=== PATIENT | female | born 1950 | race Caucasian/White ===

== ENCOUNTER 2016-11-24 08:52 | Outpatient (CLI) | payer BC ==
[2016-11-24 12:26] LABS: #Basophils 0.1 thou/uL (0.0-0.2); #Eosinphils 0.2 thou/uL (0.0-0.7); #Lymphocytes 1.9 thou/uL (1.20-3.40); #Monocytes 0.3 thou/uL (0.11-0.59); #Neutrophils 2.7 thou/uL (1.40-6.50); %Basophils 1.1 % (0.0-1.0); %Lymphocytes 37.4 % (21.0-51.0); %Neutrophils 52.5 % (42.0-75.0); Hemoglobin 13.9 g/dL (12.0-16.0); Mean Corpuscular HGB CONC 33.2 g/dL (32.0-36.0); Mean Corpuscular Hemoglobin 29.9 pg (27.0-31.0); Mean Corpuscular Volume 90.1 fl (81.0-99.0); Mean Platelet Volume 8.4 fL (7.4-10.4); Platelet Count 211 thou/uL (130-400); RBC Distribution Width 12.4 % (11.5-14.5); Red Blood Cell (RBC) Count 4.64 mill/uL (4.20-5.40); White Blood Cell (WBC) Count 5.1 thou/uL (4.8-10.8)
[2016-11-24 12:39] LABS: Anion Gap 17 mmol/L (10-20); BUN (Urea Nitrogen) 27 mg/dL (9.8-20.1); Calc. Creatinine Clearance 0 mL/min (70-130); Calcium 9.5 mg/dL (7.8-10.44); Carbon Dioxide 23 mmol/L (23-31); Cardiac Risk 3.4 (Less than 4.5); Chloride 106 mmol/L (98-107); Cholesterol 166 mg/dL (< 200 Desired); Estimated GFR-MDRD 51; Glucose 111 mg/dL (80-115); HDL Cholesterol 49 mg/dL (>60 Neg Risk); LDL Cholesterol, Calculated 77 mg/dL; Potassium 4.2 mmol/L (3.5-5.1); Sodium 142 mmol/L (136-145); Triglycerides 198 mg/dL (Less than 150)
[2016-11-24 12:54] LABS: Hemoglobin A1c 6.1 % (4.0-6.0)
[2016-11-24 14:14] LABS: ALT (SGPT) 31 U/L (0-55); AST (SGOT) 27 U/L (5-34); Albumin 4.7 g/dL (3.4-4.8); Alkaline Phosphatase 46 U/L (40-150); Bilirubin, Total 0.3 mg/dL (0.2-1.2); Globulin 2.8 g/dL (2.4-3.5); Protein, Total 7.5 g/dL (5.8-8.1)
[2016-11-24 14:36] LABS: Follow-up Chemistry Comp? YES; Follow-up Result - Chemistry REPORT FAXED
== END 2016-11-24 08:53 | disposition home or self-care (01) ==
LOC: NAVSJIPCSP 08:52
PROVIDERS: ATTEND Internal Medicine
DX: C50.111 Malignant neoplasm of central portion of right female breast (principal); E78.5 Hyperlipidemia, unspecified; I10 Essential (primary) hypertension; E11.9 Type 2 diabetes mellitus without complications; Z79.899 Other long term (current) drug therapy
CPT/HCPCS: 36415; 80053; 80061; 82306; 83036; 85025

== ENCOUNTER 2017-12-29 16:51 | Outpatient (CLI) | payer BC ==
--- NOTE | 2017-12-29 18:17 | RAD ---
TWO VIEWS OF THE CHEST: 12/29/17 COMPARISON: None. HISTORY: Hemoptysis. FINDINGS: Two views of the chest show normal sized cardiomediastinal silhouette. There is no evidence of consol idation, mass, or pleural effusion. The bones are unremarkable. IMPRESSION: No evidence of acute cardiopulmonary disease. POS: [facility]
== END 2017-12-29 16:52 | disposition home or self-care (01) ==
LOC: NAV RAD 16:51
PROVIDERS: ATTEND Otolaryngology
DX: R04.2 Hemoptysis (principal)
CPT/HCPCS: 71046

== ENCOUNTER 2019-05-30 16:46 | Outpatient (CLI) | payer BC ==
--- NOTE | 2019-05-30 17:25 | RAD ---
Left knee 4 views HISTORY: Left knee pain. Findings: Joint spaces are preserved. No acute fracture, dislocation, or aggressive osseous erosions. Small amount of fluid distends the suprapatellar bursa on the lateral view. A larger oval soft tissue density posterior to the joint space on the lateral view most likely represents fluid distenti on of a Hood cyst. 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 IMPRESSION: Fluid distention of the joint capsule and Hood cyst Cause is not evident. Possibly relat ed to otherwise mild degenerative changes. No acute osseous abnormalities are demonstrated. Clinical correlation regarding other signs and symptoms of internal derangement and need for MRI is r equired.
== END 2019-05-30 16:47 | disposition home or self-care (01) ==
LOC: NAV RAD 16:46
PROVIDERS: ATTEND Internal Medicine
DX: M25.562 Pain in left knee (principal); M71.22 Synovial cyst of popliteal space [Baker], left knee; M25.862 Other specified joint disorders, left knee

== ENCOUNTER → 2019-11-03 | Emergency (ER) | payer OTHER ==
[~2019-11-03] MED LIST: Lidocaine 1% (PF) 30 ML VIAL ONE; Lidocaine 1% w/Epinephrine 1:100K 30 ML VIAL ONE; Naproxen 500 MG TAB ONE; Ondansetron PF 4 MG/2 ML Vial ONE
--- NOTE | 2019-11-03 20:53 | RAD ---
Radiograph left wrist 3 views: DATE: 11/03/2019 Time: 8:41 PM HISTORY: 68-year-old female with acute traumatic left wrist pain due to fall. FINDINGS: There is a transverse-oblique fracture of the distal radial metaphysis, with approximately three four ths bone width anterior displacement of distal fragment, and at least one quarter bone width radial displacement of distal fragment, with overlap of fracture fragments causing foreshortening. No ulnar fracture is identified. No radiocarpal dislocation. IMPRESSION: Acute, traumatic, displaced distal radial fracture
== END ==
LOC: NAV ERS 19:43
DX: S59.202A Unspecified physeal fracture of lower end of radius, left arm, initial encounter for closed fracture (principal); E11.9 Type 2 diabetes mellitus without complications; I10 Essential (primary) hypertension; K21.9 Gastro-esophageal reflux disease without esophagitis; E78.5 Hyperlipidemia, unspecified; E78.00 Pure hypercholesterolemia, unspecified; F32.9 Major depressive disorder, single episode, unspecified; Z87.891 Personal history of nicotine dependence; Z79.82 Long term (current) use of aspirin; Z79.899 Other long term (current) drug therapy; W18.30XA Fall on same level, unspecified, initial encounter; Y92.096 Garden or yard of other non-institutional residence as the place of occurrence of the external cause
CPT/HCPCS: 25605; J2001; J2405

== ENCOUNTER 2024-03-26 14:25 | Inpatient (IN) | payer OTHER, MEDICARE ==
[2024-03-26] MEDS ORDERED: Senokot S 8.6-50 MG TAB PO PRN (15:26)
[2024-03-26] MEDS ORDERED: HYDROcodone/Acetaminophen 5/325 mg Tablet PO PRN (15:26)
[2024-03-26] MEDS ORDERED: Calcium Carbonate 500 MG ChewTAB PO PRN (15:26)
[2024-03-26] MEDS ORDERED: Acetaminophen 325 MG TAB PO PRN (15:26)
[2024-03-26 16:04] VITALS: BMI 25.0
[2024-03-26] MEDS: Ferrous Sulfate 325 MG TAB PO SCH (17:04)
[2024-03-26] MEDS: Fenofibrate Nanocrystallized 145 MG TAB PO SCH (21:19)
[2024-03-26] MEDS: Calcium Carbonate 500 MG TAB PO SCH (21:19)
[2024-03-26] MEDS: Aspirin 81 mg Enteric Coated Tablet PO SCH (21:19)
[2024-03-26] MEDS: Melatonin 3 MG TAB PO SCH (21:20)
[2024-03-26] MEDS ORDERED: Ondansetron ODT 4 MG TAB PO SCH (22:00)
[2024-03-27] MEDS: traZODone HCl 50 MG TAB PO PRN (00:21)
[2024-03-27 05:16] LABS: #Basophils 0.1 thou/uL (0.0-0.2); #Eosinphils 0.1 thou/uL (0.0-0.7); #Lymphocytes 1.1 thou/uL (1.20-3.40); #Monocytes 0.4 thou/uL (0.11-0.59); #Neutrophils 3.1 thou/uL (1.40-6.50); %Basophils 1.5 % (0.0-1.0); %Eosinophils 1.6 % (0.0-10.0); %Lymphocytes 23.2 % (21.0-51.0); %Monocytes 7.6 % (0.0-10.0); %Neutrophils 66.1 % (42.0-75.0); Hematocrit 21.2 % (36.0-47.0); Hemoglobin 6.8 g/dL (12.0-16.0); Mean Corpuscular HGB CONC 32.1 g/dL (32.0-36.0); Mean Corpuscular Volume 80.8 fl (78.0-98.0); Mean Platelet Volume 7.6 fL (7.4-10.4); Platelet Count 268 10x3/uL (130-400); RBC Distribution Width 15.9 % (11.5-14.5); Red Blood Cell (RBC) Count 2.62 mill/uL (4.20-5.40); White Blood Cell (WBC) Count 4.7 10x3/uL (4.8-10.8)
[2024-03-27 05:34] LABS: ALT (SGPT) 11 U/L (8-55); AST (SGOT) 20 U/L (5-34); Albumin 2.4 g/dL (3.4-4.8); Alkaline Phosphatase 94 U/L (40-110); Anion Gap 18 mmol/L (10-20); BUN (Urea Nitrogen) 20 mg/dL (9.8-20.1); Bilirubin, Total 0.3 mg/dL (0.2-1.2); Calc. Creatinine Clearance 44 mL/min (70-130); Carbon Dioxide 22 mmol/L (23-31); Chloride 101 mmol/L (98-107); Estimated GFR 49; Globulin 3.6 g/dL (2.4-3.5); Glucose 104 mg/dL (83-110); Potassium 2.9 mmol/L (3.5-5.1); Sodium 138 mmol/L (136-145)
[2024-03-27 05:46] LABS: Calcium 6.4 mg/dL (7.8-10.44); Critical Call Chemistry NUR.NB3@0545
[2024-03-27] MEDS: Multivitamin W/ Minerals 1 TAB PO SCH (07:55)
[2024-03-27] MEDS: Cyanocobalamin (Vitamin B-12) 1,000 MCG TAB PO SCH (07:55)
[2024-03-27] MEDS: Fish Oil 1,000 MG CAP PO SCH (07:56)
[2024-03-27] MEDS: Venlafaxine XR 37.5 MG CAP PO SCH ×2 (07:57→10:15)
[2024-03-27] MEDS: dilTIAZem CD 180 MG CAP PO SCH (07:57)
[2024-03-27] MEDS ORDERED: Clopidogrel Bisulfate 75 MG TAB PO SCH (09:00)
[2024-03-27] MEDS: Pantoprazole DR 40 MG TAB PO SCH (10:15)
[2024-03-27] MEDS: Potassium Chloride 20 MEQ TAB PO SCH ×2 (10:18→16:47)
[2024-03-27] MEDS: Sodium Chloride 0.9% 250 ML 250 ML IVPB SCH (13:45)
[2024-03-27] MEDS: Calcium Carbonate 500 MG TAB PO SCH (14:49)
[2024-03-27 17:19] LABS: #Eosinphils 0.1 thou/uL (0.0-0.7); #Lymphocytes 1.2 thou/uL (1.20-3.40); #Monocytes 0.2 thou/uL (0.11-0.59); #Neutrophils 3.6 thou/uL (1.40-6.50); %Basophils 0.9 % (0.0-1.0); %Eosinophils 1.6 % (0.0-10.0); %Lymphocytes 22.6 % (21.0-51.0); %Monocytes 4.6 % (0.0-10.0); %Neutrophils 70.2 % (42.0-75.0); Hematocrit 28.6 % (36.0-47.0); Hemoglobin 8.9 g/dL (12.0-16.0); Mean Corpuscular Hemoglobin 25.7 pg (27.0-31.0); Mean Corpuscular Volume 82.9 fl (78.0-98.0); Mean Platelet Volume 7.5 fL (7.4-10.4); Platelet Count 313 10x3/uL (130-400); RBC Distribution Width 15.1 % (11.5-14.5); Red Blood Cell (RBC) Count 3.45 mill/uL (4.20-5.40); White Blood Cell (WBC) Count 5.2 10x3/uL (4.8-10.8)
[2024-03-27 17:32] LABS: Anion Gap 19 mmol/L (10-20); BUN (Urea Nitrogen) 16 mg/dL (9.8-20.1); Calc. Creatinine Clearance 47 mL/min (70-130); Carbon Dioxide 21 mmol/L (23-31); Chloride 100 mmol/L (98-107); Estimated GFR 53; Glucose 106 mg/dL (83-110); Potassium 3.3 mmol/L (3.5-5.1); Sodium 137 mmol/L (136-145)
[2024-03-27 17:40] LABS: Calcium 6.8 mg/dL (7.8-10.44)
[2024-03-27] MEDS: Docusate 100 MG CAP PO SCH (20:59)
[2024-03-27] MEDS: traZODone HCl 50 MG TAB PO SCH (20:59)
[2024-03-28 06:13] LABS: #Eosinphils 0.1 thou/uL (0.0-0.7); #Lymphocytes 1.2 thou/uL (1.20-3.40); #Monocytes 0.5 thou/uL (0.11-0.59); #Neutrophils 3.9 thou/uL (1.40-6.50); %Basophils 0.8 % (0.0-1.0); %Lymphocytes 21.7 % (21.0-51.0); %Monocytes 5.9 % (0.0-10.0); %Neutrophils 69.7 % (42.0-75.0); Hematocrit 28.2 % (36.0-47.0); Hemoglobin 8.7 g/dL (12.0-16.0); Mean Corpuscular HGB CONC 30.7 g/dL (32.0-36.0); Mean Corpuscular Hemoglobin 25.7 pg (27.0-31.0); Mean Corpuscular Volume 83.8 fl (78.0-98.0); Mean Platelet Volume 7.9 fL (7.4-10.4); Platelet Count 308 10x3/uL (130-400); RBC Distribution Width 15.4 % (11.5-14.5); Red Blood Cell (RBC) Count 3.37 mill/uL (4.20-5.40); White Blood Cell (WBC) Count 5.5 10x3/uL (4.8-10.8)
[2024-03-28 06:17] LABS: Anion Gap 18 mmol/L (10-20); BUN (Urea Nitrogen) 14 mg/dL (9.8-20.1); Calc. Creatinine Clearance 54 mL/min (70-130); Calcium 7.1 mg/dL (7.8-10.44); Carbon Dioxide 20 mmol/L (23-31); Chloride 106 mmol/L (98-107); Estimated GFR 63; Glucose 104 mg/dL (83-110); Potassium 4.1 mmol/L (3.5-5.1); Sodium 140 mmol/L (136-145)
[2024-03-28 06:28] LABS: Magnesium 0.8 mg/dL (1.6-2.6)
[2024-03-28 06:45] VITALS: BMI 24.8
[2024-03-28] MEDS: Venlafaxine HCl XR 75 MG CAP PO SCH (08:47)
[2024-03-28] MEDS: Pantoprazole DR 40 MG TAB PO SCH (08:47)
[2024-03-28] MEDS: hydrOXYzine 25 MG TAB PO PRN (08:48)
[2024-03-28] MEDS: Magnesium Oxide 400 MG TAB PO SCH (09:03)
[2024-03-28] MEDS: Magnesium 2 GM/50 ML(in water) 2 GM in Premix 1 BAG IVPB SCH (09:03)
[2024-03-28 12:17] LABS: Hemoglobin A1c 5.5 % (4.0-6.0)
[2024-03-28] MEDS: Ferrous Sulfate 325 MG TAB PO SCH (17:06)
[2024-03-29 05:52] LABS: #Eosinphils 0.1 thou/uL (0.0-0.7); #Lymphocytes 1.1 thou/uL (1.20-3.40); #Monocytes 0.3 thou/uL (0.11-0.59); #Neutrophils 2.8 thou/uL (1.40-6.50); %Basophils 0.9 % (0.0-1.0); %Lymphocytes 25.3 % (21.0-51.0); %Monocytes 5.8 % (0.0-10.0); Hemoglobin 7.9 g/dL (12.0-16.0); Mean Corpuscular HGB CONC 31.7 g/dL (32.0-36.0); Mean Corpuscular Hemoglobin 26.2 pg (27.0-31.0); Mean Corpuscular Volume 82.7 fl (78.0-98.0); Mean Platelet Volume 7.7 fL (7.4-10.4); Platelet Count 275 10x3/uL (130-400); Red Blood Cell (RBC) Count 3.03 mill/uL (4.20-5.40); White Blood Cell (WBC) Count 4.3 10x3/uL (4.8-10.8)
[2024-03-29 05:54] LABS: Anion Gap 16 mmol/L (10-20); BUN (Urea Nitrogen) 12 mg/dL (9.8-20.1); Calc. Creatinine Clearance 55 mL/min (70-130); Calcium 7.4 mg/dL (7.8-10.44); Carbon Dioxide 22 mmol/L (23-31); Chloride 106 mmol/L (98-107); Estimated GFR 64; Glucose 86 mg/dL (83-110); Magnesium 2.8 mg/dL (1.6-2.6); Potassium 4.8 mmol/L (3.5-5.1); Sodium 139 mmol/L (136-145)
[2024-03-30 06:15] LABS: Anion Gap 15 mmol/L (10-20); BUN (Urea Nitrogen) 12 mg/dL (9.8-20.1); Calc. Creatinine Clearance 53 mL/min (70-130); Calcium 8.1 mg/dL (7.8-10.44); Carbon Dioxide 23 mmol/L (23-31); Chloride 107 mmol/L (98-107); Estimated GFR 62; Glucose 87 mg/dL (83-110); Magnesium 1.3 mg/dL (1.6-2.6); Potassium 4.5 mmol/L (3.5-5.1); Sodium 140 mmol/L (136-145)
[2024-03-30 06:23] LABS: #Eosinphils 0.1 thou/uL (0.0-0.7); #Lymphocytes 1.1 thou/uL (1.20-3.40); #Monocytes 0.2 thou/uL (0.11-0.59); #Neutrophils 2.4 thou/uL (1.40-6.50); %Basophils 1.1 % (0.0-1.0); %Eosinophils 3.2 % (0.0-10.0); %Lymphocytes 27.7 % (21.0-51.0); %Monocytes 6.1 % (0.0-10.0); %Neutrophils 61.8 % (42.0-75.0); Mean Corpuscular HGB CONC 30.8 g/dL (32.0-36.0); Mean Corpuscular Hemoglobin 25.9 pg (27.0-31.0); Mean Corpuscular Volume 84.2 fl (78.0-98.0); Mean Platelet Volume 7.9 fL (7.4-10.4); Platelet Count 275 10x3/uL (130-400); RBC Distribution Width 16.1 % (11.5-14.5); Red Blood Cell (RBC) Count 3.09 mill/uL (4.20-5.40); White Blood Cell (WBC) Count 3.9 10x3/uL (4.8-10.8)
[2024-03-30] MEDS: Potassium Chloride 20 MEQ TAB PO SCH (07:48)
[2024-03-30] MEDS: Magnesium Oxide 400 MG TAB PO SCH (08:56)
[2024-03-31 06:12] LABS: #Eosinphils 0.2 thou/uL (0.0-0.7); #Monocytes 0.3 thou/uL (0.11-0.59); #Neutrophils 2.9 thou/uL (1.40-6.50); %Basophils 1.1 % (0.0-1.0); %Eosinophils 3.4 % (0.0-10.0); %Lymphocytes 22.8 % (21.0-51.0); %Monocytes 6.2 % (0.0-10.0); %Neutrophils 66.4 % (42.0-75.0); Hematocrit 27.4 % (36.0-47.0); Hemoglobin 8.3 g/dL (12.0-16.0); Mean Corpuscular HGB CONC 30.4 g/dL (32.0-36.0); Mean Corpuscular Hemoglobin 25.6 pg (27.0-31.0); Mean Corpuscular Volume 84.4 fl (78.0-98.0); Mean Platelet Volume 7.8 fL (7.4-10.4); Platelet Count 291 10x3/uL (130-400); Red Blood Cell (RBC) Count 3.24 mill/uL (4.20-5.40); White Blood Cell (WBC) Count 4.4 10x3/uL (4.8-10.8)
[2024-03-31 06:24] LABS: Anion Gap 15 mmol/L (10-20); BUN (Urea Nitrogen) 12 mg/dL (9.8-20.1); Calc. Creatinine Clearance 49 mL/min (70-130); Calcium 9.1 mg/dL (7.8-10.44); Carbon Dioxide 23 mmol/L (23-31); Chloride 104 mmol/L (98-107); Estimated GFR 56; Glucose 111 mg/dL (83-110); Magnesium 1.2 mg/dL (1.6-2.6); Potassium 4.7 mmol/L (3.5-5.1); Sodium 137 mmol/L (136-145)
[2024-03-31] MEDS: Magnesium 2 GM/50 ML(in water) 2 GM in Premix 1 BAG IVPB SCH (10:02)
[2024-04-01 05:54] LABS: #Basophils 0.1 thou/uL (0.0-0.2); #Eosinphils 0.2 thou/uL (0.0-0.7); #Monocytes 0.2 thou/uL (0.11-0.59); #Neutrophils 2.8 thou/uL (1.40-6.50); %Basophils 1.6 % (0.0-1.0); %Eosinophils 4.4 % (0.0-10.0); %Lymphocytes 23.6 % (21.0-51.0); %Monocytes 3.8 % (0.0-10.0); %Neutrophils 66.6 % (42.0-75.0); Hematocrit 27.6 % (36.0-47.0); Hemoglobin 8.6 g/dL (12.0-16.0); Mean Corpuscular HGB CONC 31.1 g/dL (32.0-36.0); Mean Corpuscular Volume 83.7 fl (78.0-98.0); Mean Platelet Volume 7.9 fL (7.4-10.4); Platelet Count 286 10x3/uL (130-400); RBC Distribution Width 16.6 % (11.5-14.5); Red Blood Cell (RBC) Count 3.29 mill/uL (4.20-5.40); White Blood Cell (WBC) Count 4.1 10x3/uL (4.8-10.8)
[2024-04-01 05:57] LABS: Anion Gap 16 mmol/L (10-20); BUN (Urea Nitrogen) 12 mg/dL (9.8-20.1); Calc. Creatinine Clearance 48 mL/min (70-130); Calcium 9.8 mg/dL (7.8-10.44); Carbon Dioxide 22 mmol/L (23-31); Chloride 104 mmol/L (98-107); Estimated GFR 55; Glucose 106 mg/dL (83-110); Magnesium 1.6 mg/dL (1.6-2.6); Potassium 4.6 mmol/L (3.5-5.1); Sodium 137 mmol/L (136-145)
[2024-04-01] MEDS: Magnesium Oxide 400 MG TAB PO SCH (08:18)
[2024-04-01] MEDS: Ondansetron PF 4 MG/2 ML Vial IVP SCH (08:24)
[2024-04-02 05:44] LABS: #Eosinphils 0.3 thou/uL (0.0-0.7); #Monocytes 0.3 thou/uL (0.11-0.59); %Basophils 0.9 % (0.0-1.0); %Eosinophils 5.9 % (0.0-10.0); %Lymphocytes 20.8 % (21.0-51.0); %Monocytes 5.9 % (0.0-10.0); %Neutrophils 66.6 % (42.0-75.0); Hematocrit 27.9 % (36.0-47.0); Hemoglobin 8.5 g/dL (12.0-16.0); Mean Corpuscular HGB CONC 30.6 g/dL (32.0-36.0); Mean Corpuscular Hemoglobin 25.9 pg (27.0-31.0); Mean Corpuscular Volume 84.7 fl (78.0-98.0); Mean Platelet Volume 6.9 fL (7.4-10.4); Platelet Count 277 10x3/uL (130-400); RBC Distribution Width 16.7 % (11.5-14.5); White Blood Cell (WBC) Count 4.6 10x3/uL (4.8-10.8)
[2024-04-02 06:01] LABS: Anion Gap 16 mmol/L (10-20); BUN (Urea Nitrogen) 11 mg/dL (9.8-20.1); Calc. Creatinine Clearance 46 mL/min (70-130); Calcium 9.6 mg/dL (7.8-10.44); Carbon Dioxide 23 mmol/L (23-31); Chloride 103 mmol/L (98-107); Estimated GFR 52; Glucose 108 mg/dL (83-110); Magnesium 1.5 mg/dL (1.6-2.6); Potassium 4.6 mmol/L (3.5-5.1); Sodium 137 mmol/L (136-145)
[2024-04-02] MEDS: Ondansetron ODT 4 MG TAB PO PRN (08:29)
[2024-04-02 12:15] VITALS: BP 122/71; TEMP 97
== END 2024-04-02 12:05 | disposition home or self-care (01) | DRG 948 ==
LOC: NAV ACUTE 15:02
PROVIDERS: ADMIT Family Medicine; ATTEND Family Medicine
PROC: 30233N1 Transfusion of Nonautologous Red Blood Cells into Peripheral Vein, Percutaneous Approach (ICD-10-PCS; principal; 2024-03-27)
DX: R53.81 Other malaise (principal); C78.4 Secondary malignant neoplasm of small intestine; C18.9 Malignant neoplasm of colon, unspecified; N17.9 Acute kidney failure, unspecified; D64.9 Anemia, unspecified; I10 Essential (primary) hypertension; E11.9 Type 2 diabetes mellitus without complications; C50.919 Malignant neoplasm of unspecified site of unspecified female breast; E83.51 Hypocalcemia; K59.00 Constipation, unspecified; E83.42 Hypomagnesemia; F41.1 Generalized anxiety disorder; D69.6 Thrombocytopenia, unspecified; G47.00 Insomnia, unspecified; E87.6 Hypokalemia; E78.5 Hyperlipidemia, unspecified; E87.8 Other disorders of electrolyte and fluid balance, not elsewhere classified; Z86.73 Personal history of transient ischemic attack (TIA), and cerebral infarction without residual deficits; Z98.890 Other specified postprocedural states; Z90.49 Acquired absence of other specified parts of digestive tract; Z87.891 Personal history of nicotine dependence; Z88.8 Allergy status to other drugs, medicaments and biological substances; Z79.82 Long term (current) use of aspirin; Z79.899 Other long term (current) drug therapy
CPT/HCPCS: 36415; 36430; 74018; 80048; 80053; 83036; 83735; 85025; 86850; 86900; 86901; J1642; J2405; J3475; J7050; P9016; Q0162

== ENCOUNTER 2024-06-01 19:45 | Emergency (ER) | payer OTHER ==
[2024-06-01 20:23] LABS: #Lymphocytes 0.3 thou/uL (1.20-3.40); #Monocytes 0.1 thou/uL (0.11-0.59); #Neutrophils 4.7 thou/uL (1.40-6.50); %Basophils 0.3 % (0.0-1.0); %Lymphocytes 5.2 % (21.0-51.0); %Monocytes 0.9 % (0.0-10.0); %Neutrophils 93.5 % (42.0-75.0); Hemoglobin 8.3 g/dL (12.0-16.0); Mean Corpuscular Volume 84.5 fl (78.0-98.0); Mean Platelet Volume 8.6 fL (7.4-10.4); Platelet Count 210 10x3/uL (130-400); RBC Distribution Width 17.4 % (11.5-14.5); Red Blood Cell (RBC) Count 3.08 mill/uL (4.20-5.40); White Blood Cell (WBC) Count 5.1 10x3/uL (4.8-10.8)
[2024-06-01 20:40] LABS: ALT (SGPT) 11 U/L (8-55); AST (SGOT) 15 U/L (5-34); Albumin 3.3 g/dL (3.4-4.8); Alkaline Phosphatase 76 U/L (40-110); Anion Gap 18 mmol/L (10-20); BUN (Urea Nitrogen) 13 mg/dL (9.8-20.1); Bilirubin, Total 0.4 mg/dL (0.2-1.2); Calc. Creatinine Clearance 0 mL/min (70-130); Carbon Dioxide 18 mmol/L (23-31); Chloride 108 mmol/L (98-107); Estimated GFR 50; Glucose 203 mg/dL (83-110); Magnesium Less than 0.6 mg/dL (1.6-2.6); Potassium 4.2 mmol/L (3.5-5.1); Protein, Total 6.3 g/dL (5.8-8.1); Sodium 140 mmol/L (136-145)
[2024-06-01 20:42] LABS: Troponin I 0.015 ng/mL (< 0.028)
[2024-06-01 20:49] LABS: Calcium 6.1 mg/dL (7.6-10.4)
[2024-06-01] MEDS ORDERED: Magnesium 2 GM/50 ML BAG (IN WATER) ONE (20:49)
[2024-06-01] MEDS ORDERED: Calcium Chloride 1 GM/10 ML Abboject SYRINGE ONE (20:57)
[2024-06-01] MEDS ORDERED: Sodium Chloride 0.9% 1,000 ML ONE (20:59)
[2024-06-01] MEDS ORDERED: Sodium Chloride 0.9% 100 ML ONE (21:03)
== END 2024-06-01 22:55 | disposition home or self-care (01) ==
LOC: NAV ERS 19:45
DX: E83.51 Hypocalcemia (principal); E83.42 Hypomagnesemia; E11.9 Type 2 diabetes mellitus without complications; E78.00 Pure hypercholesterolemia, unspecified; K21.9 Gastro-esophageal reflux disease without esophagitis; Z87.891 Personal history of nicotine dependence; Z79.899 Other long term (current) drug therapy
CPT/HCPCS: 71046; 80053; 83735; 84484; 85025; 93005; 94760; J3475; J7030; 96365; 96368

== ENCOUNTER 2024-07-13 14:35 | Emergency (ER) | payer OTHER ==
[2024-07-13 15:37] LABS: #Lymphocytes 0.5 thou/uL (1.20-3.40); #Monocytes 0.2 thou/uL (0.11-0.59); %Basophils 0.2 % (0.0-1.0); %Eosinophils 0.2 % (0.0-10.0); %Lymphocytes 3.2 % (21.0-51.0); %Neutrophils 95.4 % (42.0-75.0); Hematocrit 26.7 % (36.0-47.0); Hemoglobin 8.2 g/dL (12.0-16.0); Mean Corpuscular HGB CONC 30.8 g/dL (32.0-36.0); Mean Corpuscular Volume 84.4 fl (78.0-98.0); Mean Platelet Volume 7.6 fL (7.4-10.4); Platelet Count 251 10x3/uL (130-400); RBC Distribution Width 17.9 % (11.5-14.5); Red Blood Cell (RBC) Count 3.17 mill/uL (4.20-5.40); White Blood Cell (WBC) Count 14.7 10x3/uL (4.8-10.8)
[2024-07-13 15:56] LABS: ALT (SGPT) 13 U/L (8-55); AST (SGOT) 19 U/L (5-34); Albumin 3.5 g/dL (3.4-4.8); Alkaline Phosphatase 111 U/L (40-110); Anion Gap 13 mmol/L (10-20); BUN (Urea Nitrogen) 9 mg/dL (9.8-20.1); Bilirubin, Total 0.2 mg/dL (0.2-1.2); Calc. Creatinine Clearance 0 mL/min (70-130); Carbon Dioxide 23 mmol/L (23-31); Chloride 111 mmol/L (98-107); Estimated GFR 77; Globulin 3.1 g/dL (2.4-3.5); Glucose 134 mg/dL (83-110); Magnesium 1.3 mg/dL (1.6-2.6); Potassium 3.6 mmol/L (3.5-5.1); Protein, Total 6.6 g/dL (5.8-8.1); Sodium 143 mmol/L (136-145)
[2024-07-13 16:07] LABS: Calcium 6.7 mg/dL (7.8-10.44)
[2024-07-13] MEDS ORDERED: Magnesium 2 GM/50 ML BAG (IN WATER) ONE (16:51)
[2024-07-13] MEDS ORDERED: Calcium Chloride 1 GM/10 ML Abboject SYRINGE ONE (16:51)
[2024-07-13] MEDS ORDERED: Sodium Chloride 0.9% 100 ML ONE (17:14)
== END 2024-07-13 19:32 | disposition home or self-care (01) ==
LOC: NAV ERS 14:35
DX: E83.51 Hypocalcemia (principal); F17.210 Nicotine dependence, cigarettes, uncomplicated; E11.9 Type 2 diabetes mellitus without complications; I10 Essential (primary) hypertension
CPT/HCPCS: 83735; 85025; 96374; 96375; J3475